=== PATIENT | female | born 1960 | race Caucasian/White ===

== ENCOUNTER 2016-08-02 12:00 | Emergency (ER) | payer BC, OTHER ==
--- NOTE | ~2016-08-02 | CR72 ---
[facility] A Service of [facility] / [facility] RADIOLOGY TEXT RESULTS PATIENT: ERICA CURTIS LOCATION: SED : 64 UNIT #: [id number] AGE: [address]: Miguel Gayle DO SEX: F ORDER DR: [id number] [place] [id number] E MR#: [id number] Acc #: [id number] NAME: ERICA CURTIS : 1960 SEX: F STUDY DATE/TIME: 08/02/2016 12:18 UNIT: SED ROOM: STUDY DESCRIPTION: CR Chest Single View Portable Attending Physician: Miguel Gayle Ordering Physician: Physician Non-Staff Primary Care Physician: David Wiggins Jr., A.P.R.N. MEDICAL IMAGING REPORT This report is preliminary unless electronic signature is present. EXAM Chest x-ray portable, 08/02/2016 HISTORY Short of air, wheezing since last night. COMMENT Single frontal portable view of the chest timed 12:18 on 08/02/2016 compared to 09/10/2012. There is chronic blunting at the right costophrenic angle and elevation of the right hemidiaphragm. The heart size is normal. The left base is obscured by the patient's obesity. Allowing for this no acute infiltrate appreciated, otherwise no acute congestive failure. Some thickening of the central peribronchovascular soft tissues suspected and please correlate for any clinical concern for asthma or bronchitis. No pneumothorax. IMPRESSION 1. Chronic elevation right lateral hemidiaphragm and pleural thickening. 2. Study is quite limited by the patient's obesity. The left base is obscured by overlying tissue, otherwise no acute infiltrate is suspected though I believe there is some thickening of the peribronchovascular soft tissues and please correlate for evidence of asthma or bronchitis. Dictated by... Mariama Valadez M.D. THIS IS AN ELECTRONICALLY VERIFIED REPORT [facility] A Service [facility] RADIOLOGY TEXT RESULTS PATIENT: ERICA CURTIS LOCATION: SED : 64 UNIT #: [id number] AGE: [address]: Miguel Gayle DO SEX: F ORDER DR: Mariama Valadez M.D. at 08/03/2016 11:39 AM DOMINIK/terrence TD: 08/03/2016 01:06 JOB #: [id number] MEDICAL IMAGING REPORT
--- NOTE | ~2016-08-02 | EKG ---
PATIENT: ERICA CURTIS UNIT #: [id number] Ventricular Rate: 86 BPM Atrial Rate: 86 BPM P-R Interval: 144 ms QRS Duration: 74 ms Q-T Interval: 370 ms QTC Calculation(Bezet): 442 ms P Norman: 49 degrees Calculated R Norman: 51 degrees Calculated T Norman: 44 degrees Diagnosis Line: Normal sinus rhythm Diagnosis Line: RSR' or QR pattern in V1 suggests right Diagnosis Line: ventricular conduction delay Diagnosis Line: Borderline ECG Diagnosis Line: No previous ECGs available Diagnosis Line: Confirmed by NAVYA AMIN MD ([id number]) on Diagnosis Line: 09/17/2016 6:58:28 AM INTERPRETING MD: LING
[~2016-08-02 12:00] MED LIST: ALBUTEROL17 GM INH; ALLEGRA180 MG PO; AZMACORT20 GM INH; BACIT-POLYMYXI3.5 GM; COMBIVENT INH14.7 GM INH; COUMADIN; COUMADIN PO; CRESTOR; CYMBALTA30 MG PO; FERROUS SULFATE; LEVAQUIN PO; PREDNISONE PO; PULMICORT200 MCG/AE INH; SERZONE; SINGULAIR PO; ZOCOR PO
[2016-08-02] MEDS ORDERED: GLUCOPHAGE500 M1 PO (12:11)
[2016-08-02] MEDS ORDERED: VITAMIN D250000 UNIT PO (12:12)
[2016-08-02] MEDS ORDERED: CLARITIN10 M3 PO (12:13)
[2016-08-02] MEDS ORDERED: BREO ELLIPTA 11 EACH INH (12:14)
[2016-08-02 12:34] LABS: BASOPHIL# 0.1 X10e3 (0-0.3); BASOPHIL% 1.1 % (0-2.5); EOSINOPHIL# 0.2 X10e3 (0-0.7); EOSINOPHIL% 3.9 % (0.0-7.0); HEMATOCRIT 36.5 % (35.0-45.0); HEMOGLOBIN 11.7 gm/dL (12.0-16.0); LYMPHOCYTE# 1.6 X10e3 (1.0-3.5); LYMPHOCYTE% 25.8 % (17.0-45.0); MEAN CELL VOLUME 80.4 FL (83-96); MEAN CORPUSCULAR HEMOGLOBIN 25.7 PG (28-34); MEAN CORPUSCULAR HGB CONC 31.9 g/dL (30-36); MEAN PLATELET VOLUME 8.4 FL (6.5-11.5); MONOCYTE# 0.8 X10e3 (0-1.0); MONOCYTE% 12.5 % (3.0-12.0); NEUTROPHIL# 3.6 X10e3 (1.5-7.1); NEUTROPHIL% 56.7 % (40-75); PLATELET COUNT 249 X10e3 (140-420); RED BLOOD COUNT 4.54 X10e (3.90-5.30); RED CELL DISTRIBUTION WIDTH 16.3 % (11.0-15.5); WHITE BLOOD COUNT 6.4 X10e3 (4.0-10.5)
[2016-08-02 12:42] LABS: DIFF IND NO
[2016-08-02 12:58] LABS: ALBUMIN SERUM 3.2 g/dL (3.5-5.0); ALKALINE PHOSPHATASE 84 U/L (32-92); ALT (SGPT) 30 U/L (10-40); AST (SGOT) 29 U/L (10-42); BILIRUBIN, DIRECT 0.1 mg/dL (0.0-0.2); BILIRUBIN,INDIRECT 0.3 mg/dL (0.0-0.9); BILIRUBIN,TOTAL 0.4 mg/dL (0.2-2.0); BLOOD UREA NITROGEN 14 mg/dL (9-23); CALCIUM SERUM 8.5 mg/dL (8.4-10.2); CARBON DIOXIDE 28 mmol/L (22-31); CHLORIDE 102 mmol/L (100-111); CREATININE SERUM 0.8 mg/dL (0.6-1.4); GLOM FILT RATE Estimated ABOVE60 mL/min (>60); GLUCOSE FASTING 154 mg/dL (70-110); POTASSIUM 3.3 mmol/L (3.5-5.1); PROTEIN TOTAL SERUM 6.7 g/dL (6.0-8.3); SODIUM 138 mmol/L (135-145)
[2016-08-02 13:13] LABS: POC - CKMB 1.2 ng/mL (0.0-7.9); POC - TROPONIN <0.05 ng/mL (<=0.05)
[2016-08-05] MEDS ORDERED: PREDNISONE (12:41)
== END 2016-08-02 14:36 | disposition home or self-care (01) ==
LOC: SED 12:00
PROVIDERS: Emergency Medicine
DX: J45.901 Unspecified asthma with (acute) exacerbation (principal)
CPT/HCPCS: 36415; 71010; 80048; 80076; 82553; 83874; 83880; 84484; 85025; 93005; 94640; 96374; 99284; J2930

== ENCOUNTER 2016-08-05 13:21 | Emergency (ER) | payer BC, OTHER ==
--- NOTE | ~2016-08-05 | CT16 ---
[facility] A Service of [facility] & [facility] RADIOLOGY TEXT RESULTS PATIENT: ERICA CURTIS LOCATION: SED : [birth year] UNIT #: [id number] AGE: [address]: Colleen Haas MD SEX: F ORDER DR: [id number] [address] [address] [id number] E MR#: [id number] Acc #: [id number] NAME: ERICA CURTIS. : 1960 SEX: F STUDY DATE/TIME: 08/05/2016 13:52 UNIT: SED ROOM: STUDY DESCRIPTION: CT Angio Chest for PE Attending Physician: Colleen Haas M.D. Ordering Physician: Colleen Haas M.D. Primary Care Physician: David Wiggins Jr., A.P.R.N. MEDICAL IMAGING REPORT This report is preliminary unless electronic signature is present. EXAM CT chest with contrast, pulmonary arteriography protocol. DATE OF EXAM 08/05/2016 HISTORY 56-year-old female in the ED complaining of 3-day history of shortness of air. TECHNIQUE CT examination of the chest was performed with IV contrast using pulmonary arteriography protocol. 3-D CTA images of the pulmonary arteries were reformatted in multiple planes. NOTE: This CT exam was performed with one or more of the following radiation dose reduction techniques: automatic exposure control, adjustment of mA and/or kV according to patient size, and iterative reconstruction. FINDINGS There is no CT evidence of acute pulmonary embolism. There is a thin, weblike filling defect within a central right lower lobe pulmonary artery that may represent sequelae of chronic PE. Thoracic aorta is normal in caliber. Heart size is normal, there is no pericardial effusion. Chronic elevation of the right hemidiaphragm with fibrotic scarring in the peripheral right lung base. The lungs are otherwise clear. No pleural effusion. Significant thoracic adenopathy is present within the superior and middle mediastinum. The largest upper right pretracheal lymph node measures 3.8 x 2.4 x 3.8 cm. A lower pretracheal lymph node measures up to 2.5 cm, and a prevascular superior mediastinal node measures 2.4 cm. Several mildly prominent bilateral hilar lymph nodes. No axillary adenopathy or STS. [facility] A Service of [facility] RADIOLOGY TEXT RESULTS PATIENT: ERICA CURTIS LOCATION: [facility] : [birth year] UNIT #: [id number] AGE: [address]: Colleen Haas MD SEX: F ORDER DR: supraclavicular adenopathy is seen. The findings are nonspecific. Lymphoma or metastatic disease are considerations. Consider followup evaluation and staging studies which may include whole-body PET CT scan if clinically appropriate. Limited upper abdominal images show hepatomegaly and diffuse hepatic steatosis. No adenopathy within the uppermost abdomen. No splenomegaly. IMPRESSION 1. No evidence of acute pulmonary embolism. 2. Single thin, weblike filling defect in the central right lower lobe pulmonary artery may represent the sequela of chronic PE. Pulmonary arteries, otherwise, normal. 3. Chronic elevation of right hemidiaphragm with peripheral subpleural pulmonary scarring in the right lung base. Lungs otherwise clear. 4. Abnormal thoracic adenopathy as detailed above. Largest pretracheal middle mediastinal lymph node measures up to 3.8 cm. Consider followup evaluation which may include whole body PET/CT scan depending on the patient's clinical history. Metastatic disease or lymphoma are considerations. 5. Hepatomegaly and diffuse hepatic steatosis. Dictated by... Anton Elmore M.D. THIS IS AN ELECTRONICALLY VERIFIED REPORT Anton Elmore M.D. at 08/06/2016 6:27 AM JOSEFA/dagmar TD: 08/05/2016 17:15 JOB #: [id number] MEDICAL IMAGING REPORT
[~2016-08-05 13:21] MED LIST changes: +BREO ELLIPTA 11 EACH INH; +CLARITIN10 M3 PO; +GLUCOPHAGE500 M1 PO; +PREDNISONE; +VITAMIN D250000 UNIT PO
[2016-08-05 13:35] LABS: BASOPHIL# 0.1 X10e3 (0-0.3); BASOPHIL% 0.7 % (0-2.5); HEMATOCRIT 37.3 % (35.0-45.0); HEMOGLOBIN 11.8 gm/dL (12.0-16.0); LYMPHOCYTE# 4.3 X10e3 (1.0-3.5); LYMPHOCYTE% 27.1 % (17.0-45.0); MEAN CELL VOLUME 80.2 FL (83-96); MEAN CORPUSCULAR HEMOGLOBIN 25.5 PG (28-34); MEAN CORPUSCULAR HGB CONC 31.7 g/dL (30-36); MEAN PLATELET VOLUME 7.9 FL (6.5-11.5); MONOCYTE# 1.6 X10e3 (0-1.0); MONOCYTE% 9.8 % (3.0-12.0); NEUTROPHIL% 62.4 % (40-75); PLATELET COUNT 299 X10e3 (140-420); RED BLOOD COUNT 4.65 X10e (3.90-5.30)
[2016-08-05 13:36] LABS: DIFF IND NO
== END 2016-08-05 15:54 | disposition home or self-care (01) ==
LOC: SED 13:21
PROVIDERS: Student in an Organized Health Care Education/Training Program
DX: J45.901 Unspecified asthma with (acute) exacerbation (principal); Z86.718 Personal history of other venous thrombosis and embolism; Z90.710 Acquired absence of both cervix and uterus; Z79.01 Long term (current) use of anticoagulants; Z88.2 Allergy status to sulfonamides; Z88.8 Allergy status to other drugs, medicaments and biological substances
CPT/HCPCS: 36415; 71275; 83880; 85025; 94640; 96365; 96375; 99284; J2930; J3475; Q9967

== ENCOUNTER 2016-08-20 15:44 | Emergency (ER) | payer BC, OTHER ==
--- NOTE | ~2016-08-20 | CT16 ---
[facility] A Service of [facility] & [facility] RADIOLOGY TEXT RESULTS PATIENT: ERICA CURTIS LOCATION: SED : [birth year] UNIT #: [id number] AGE: [address]: Ryan Lam MD SEX: F ORDER DR: [id number] [place] [id number] E MR#: [id number] Acc #: [id number] NAME: ERICA CURTIS. : 1960 SEX: F STUDY DATE/TIME: 08/20/2016 17:50 UNIT: SED ROOM: STUDY DESCRIPTION: CT Angio Chest for PE Attending Physician: Ryan Lam M.D. Ordering Physician: Ryan Lam M.D. Primary Care Physician: David Wiggins Jr., A.P.R.N. MEDICAL IMAGING REPORT This report is preliminary unless electronic signature is present. EXAM CT angiogram of the chest PE protocol. HISTORY 56-year-old female shortness of air x3 weeks. Patient's 3rd visit to the emergency room for same symptoms. COMPARISON CT angio chest 08/05/2016 FINDINGS Axial images form through the chest following IV contrast. 3-D coronal and sagittal reconstructed images reviewed at a workstation. There is suboptimal opacification of the pulmonary arteries. Some of this may be related patient's body habitus and associated image noise. No convincing evidence of pulmonary embolus. Heart size within normal limits. There is continued right paratracheal mass and anterior mediastinal mass and/or adenopathy. This is unchanged from the patient's recent chest CT, and the differential would include both benign as well as malignant disease and further evaluation followup may be warranted. Please see prior report for details regarding appropriate workup or followup. There is right-sided volume loss with elevation of the right hemidiaphragm and a small amount of right basilar scarring or atelectasis. No acute airspace disease. No effusions. Trachea and bronchi unremarkable. The upper abdomen demonstrates fatty liver. Osseous structures demonstrates mild degenerative changes thoracic spine with mild accentuation of the thoracic kyphosis. Thoracic inlet remarkable for prominent extension off the right lobe of the thyroid gland could represent a thyroid nodule. Followup ultrasound may be warranted. IMPRESSION STS. [facility] A Service of [facility] RADIOLOGY TEXT RESULTS PATIENT: ERICA CURTIS LOCATION: [facility] : [birth year] UNIT #: [id number] AGE: [address]: Ryan Lam MD SEX: F ORDER DR: 1. Suboptimal examination due to body habitus. No definitive pulmonary embolus. 2. No change in patient's right paratracheal mass and/or adenopathy as well as a small amount of anterior mediastinal mass or adenopathy. Adenopathy is favored and the differential would include both benign as well as malignant processes. Please see prior CT report for details regarding appropriate followup and management. 3. Suspected exophytic nodule off the posterior aspect of the right lobe of the thyroid gland. Again this most likely represents a thyroid nodule. However a parathyroid lesion not excluded. Followup thyroid ultrasound on a nonemergent basis may be warranted. 4. Chronic right-sided volume loss with a small amount of right basilar scarring and/or atelectasis. Dictated by... Ana Chong M.D. THIS IS AN ELECTRONICALLY VERIFIED REPORT Ana Chong M.D. at 08/20/2016 10:39 PM Constantino TD: 08/20/2016 21:58 JOB #: [id number] MEDICAL IMAGING REPORT Page 1 of 1
[2016-08-20 16:42] LABS: BASOPHIL# 0.1 X10e3 (0-0.3); EOSINOPHIL# 0.3 X10e3 (0-0.7); EOSINOPHIL% 2.4 % (0.0-7.0); HEMATOCRIT 37.7 % (35.0-45.0); HEMOGLOBIN 11.7 gm/dL (12.0-16.0); LYMPHOCYTE# 2.9 X10e3 (1.0-3.5); LYMPHOCYTE% 21.8 % (17.0-45.0); MEAN CELL VOLUME 80.9 FL (83-96); MEAN CORPUSCULAR HGB CONC 30.9 g/dL (30-36); MONOCYTE# 1.3 X10e3 (0-1.0); MONOCYTE% 9.5 % (3.0-12.0); NEUTROPHIL# 8.8 X10e3 (1.5-7.1); NEUTROPHIL% 65.3 % (40-75); PLATELET COUNT 230 X10e3 (140-420); RED BLOOD COUNT 4.66 X10e (3.90-5.30); RED CELL DISTRIBUTION WIDTH 16.5 % (11.0-15.5); WHITE BLOOD COUNT 13.5 X10e3 (4.0-10.5)
[2016-08-20 16:43] LABS: DIFF IND NO
[2016-08-20 17:11] LABS: INR 2.5; PROTHROMBIN TIME (PATIENT) 28.4 SECONDS (9.5-12.4)
[2016-08-20 17:20] LABS: ALBUMIN SERUM 3.3 g/dL (3.5-5.0); BILIRUBIN, DIRECT 0.1 mg/dL (0.0-0.2); BILIRUBIN,INDIRECT 0.7 mg/dL (0.0-0.9); BILIRUBIN,TOTAL 0.8 mg/dL (0.2-2.0); BUN/CREATININE RATIO 25.71; CALCIUM SERUM 8.3 mg/dL (8.4-10.2); CREATININE SERUM 0.7 mg/dL (0.6-1.4); GLOM FILT RATE Estimated 98.2 mL/min (>60); POTASSIUM 3.3 mmol/L (3.5-5.1); PROTEIN TOTAL SERUM 6.6 g/dL (6.0-8.3)
== END 2016-08-20 19:22 | disposition home or self-care (01) ==
LOC: SED 15:44
PROVIDERS: Emergency Medicine
DX: J44.0 Chronic obstructive pulmonary disease with (acute) lower respiratory infection (principal); J44.1 Chronic obstructive pulmonary disease with (acute) exacerbation; J20.9 Acute bronchitis, unspecified; E11.9 Type 2 diabetes mellitus without complications; I10 Essential (primary) hypertension; E66.9 Obesity, unspecified; Z88.2 Allergy status to sulfonamides; Z88.6 Allergy status to analgesic agent; Z79.899 Other long term (current) drug therapy; Z79.84 Long term (current) use of oral hypoglycemic drugs
CPT/HCPCS: 36415; 71275; 80048; 80076; 83880; 85025; 85610; 85730; 96360; 99284; Q9967

== ENCOUNTER → 2016-11-06 | Outpatient (CLI) | payer BC, OTHER ==
--- NOTE | ~2016-11-06 | CT55 ---
[facility] A Service of [facility] & [facility] RADIOLOGY TEXT RESULTS PATIENT: ERICA CURTIS LOCATION: [facility] : [birth year] UNIT #: [id number] AGE: [address]: MARLENI ANN MD SEX: F ORDER DR: [id number] [address] [address] [id number] O MR#: [id number] Acc #: [id number] NAME: ERICA CURTIS : 1960 SEX: F STUDY DATE/TIME: 11/06/2016 13:07 UNIT: [facility] ROOM: STUDY DESCRIPTION: CT Chest W Con Attending Physician: Marleni Ann M.D. Referring Physician: Marleni Ann M.D. Ordering Physician: Genaro Ann M.D. Primary Care Physician: David Wiggins Jr., A.P.R.N. MEDICAL IMAGING REPORT This report is preliminary unless electronic signature is present. EXAM CT of the chest with IV contrast media HISTORY Follow up of enlarged mediastinal lymph nodes. Chronic shortness of breath, date of examination 11/06, comparison 08/20/16. TECHNIQUE Axial imaging of the chest was performed with an IV bolus of contrast and directly compared to the patient's last exam. This CT exam was performed with one or more of the following radiation dose reduction techniques: Automatic exposure control, adjustment of mA and/or kV according to patient size, and iterative reconstruction. FINDINGS Scans through the lung parenchyma show some elevation of the right hemidiaphragm with some chronic parenchymal scarring in the right base. The previous infiltrate in the left base has cleared. There are no new infiltrates present. Redemonstrated are enlarged right paratracheal nodes measuring 3.2 x 1.9, previously measuring 3.4 x 2.1 cm. There is no hilar lymphadenopathy. Scans through the upper abdomen shows diffuse hepatic steatosis but no acute abnormalities. This also is unchanged. CONCLUSION 1. Elevation of the right hemidiaphragm with some chronic right basilar scarring, unchanged. 2. Enlarged right paratracheal nodes measuring up to 3.4 x 2.1. These are stable. 3. Diffuse hepatic steatosis, unchanged. 4. Clearing of the infiltrate in the left base. STS. [facility] A Service of [facility] & [facility] RADIOLOGY TEXT RESULTS PATIENT: ERICA CURTIS LOCATION: [facility] : [birth year] UNIT #: [id number] AGE: [address]: MARLENI ANN MD SEX: F ORDER DR: Dictated by... Nikhil Diaz M.D. THIS IS AN ELECTRONICALLY VERIFIED REPORT Nikhil Diaz M.D. at 11/12/2016 7:15 AM LENY/shonna TD: 11/08/2016 19:12 JOB #: [id number] MEDICAL IMAGING REPORT Page 1 of 1
[2016-11-06 13:11] LABS: POC - CREATININE 0.95 mg/dL (0.44-1.03); POC - GFR >60.0 mL/min (>60)
== END | disposition home or self-care (01) ==
LOC: SCT 11:40
PROVIDERS: Thoracic Surgery (Cardiothoracic Vascular Surgery)
DX: R59.0 Localized enlarged lymph nodes (principal); J98.6 Disorders of diaphragm; K76.0 Fatty (change of) liver, not elsewhere classified
CPT/HCPCS: 71260; 82565; Q9967